=== PATIENT | male | born 1995 | race Caucasian/White ===

== ENCOUNTER 2022-02-03 12:07 | Emergency (ER) | payer OTHER ==
[2022-02-03 13:02] VITALS: BP 129/84; PULSE 85; RESP 18; TEMP 97.8
[2022-02-03] MEDS ORDERED: IBUPROFEN 800 MG TAB PO STA (13:20)
--- NOTE | 2022-02-03 13:30 | ED ---
General Adult HPI - General Chief complaint: Extremity Problem,Nontraumatic Stated complaint: Ankle injury Time Seen by Provider: 02/03/22 13:15 Source: patient, RN notes reviewed, old records reviewed Mode of arrival: ambulatory Limitations: no limitations - History of Present Illness Initial comments: 26-year-old male who presents to the emergency room with complaints of left ankle pain since rolling it on January 29. Patient's brother taped the ankle for support today. He denies any other injury. He states he does have a history of multiple broken bones in the past. He also has a history of bipolar and takes medications daily. -: days(s) (5) Location: left, lower extremity (ankle) Severity scale (1-10): 6 Quality: constant Consistency: constant Improves with: immobilization Worsens with: movement (ambulation) Associated Symptoms: denies other symptoms Treatments Prior to Arrival: other (taped for support) - Related Data Previous Rx's Medication Instructions Recorded Ibuprofen [Motrin] 800 mg PO Q6HR #30 tab 02/03/22 Allergies Allergy/AdvReac Type Severity Reaction Status Date / Time guanfacine [From Tenex] Allergy Anaphylaxis Verified 02/03/22 12:54 aspirin AdvReac Nausea & Verified 02/03/22 12:54 Vomiting & Diarrhea Review of Systems ROS Statement: Those systems with pertinent positive or pertinent negative responses have been documented in the HPI. ROS Other: All systems not noted in ROS Statement are negative. Past Medical History Additional Past Medical History / Comment(s): autism. hypermobility joint syndrome History of Any Multi-Drug Resistant Organisms: None Reported Past Surgical History: Adenoidectomy, Tonsillectomy Past Psychological History: ADD/ADHD, Bipolar Smoking Status: Never smoker Past Alcohol Use History: None Reported Past Drug Use History: None Reported General Exam Limitations: no limitations General appearance: alert, in no apparent distress Head exam: Present: atraumatic Respiratory exam: Present: normal lung sounds bilaterally. Absent: respiratory distress, accessory muscle use Cardiovascular Exam: Present: regular rate, normal rhythm GI/Abdominal exam: Present: soft Extremities exam: Present: normal capillary refill. Absent: pedal edema, calf tenderness Neurological exam: Present: alert, oriented X3 Psychiatric exam: Present: normal affect, normal mood Skin exam: Present: warm, dry, normal color. Absent: cyanosis, diaphoretic, petechiae, pallor Course Vital Signs 02/03/22 12:48 Temperature 97.8 F Pulse Rate 85 Respiratory 18 Rate Blood Pressure 129/84 O2 Sat by Pulse 98 Oximetry Medical Decision Making - Medical Decision Making X-ray shows a possible remote avulsion injury medial malleolus with osteoarthritis. Patient was given a prescription for Motrin and a ankle stirrup splint. Directed to rest, ice, elevate ankle. He was given a referral to orthopedics and directed to follow up with them this week. Disposition Clinical Impression: Avulsion fracture of ankle Disposition: HOME SELF-CARE Condition: Good Instructions (If sedation given, give patient instructions): Ankle Fracture (ED) Additional Instructions: Rest, ice, elevate and wear splint until seen by orthopedics this week. Take Tylenol and/or Motrin as needed for pain. Return to the emergency room with any new or concerning symptoms including increased pain or numbness. Prescriptions: Ibuprofen [Motrin] 800 mg PO Q6HR #30 tab Is patient prescribed a controlled substance at d/c from ED?: No Referrals: None,Stated [Primary Care Provider] - 1-2 days Aristides Cortez MD [Medical Doctor] - 1-2 days Time of Disposition: 14:21
--- NOTE | 2022-02-03 13:38 | XR ---
Left ankle HISTORY: Pain, trauma 3 views of left ankle There is overlying splint present. Soft tissue swelling is noted. Bone mineralization, joint spaces a nd alignment are maintained. There is an enthesophyte at the insertion of the Achilles tendon. Some m ild spurring at the tibiotalar joint. At the level of the medial malleolus small ossific densities galindo spected distally which appear to be well-corticated, not felt likely to be acute, may be related to o ld avulsion injury, correlate for point tenderness IMPRESSION: No dislocation is evident. Follow-up as indicated. Possible remote avulsion injury medial malleolus, secondary osteoarthritis.
== END 2022-02-03 15:00 | disposition home or self-care (01) ==
LOC: EC 12:07
DX: S82.892A Other fracture of left lower leg, initial encounter for closed fracture (principal); X50.1XXA Overexertion from prolonged static or awkward postures, initial encounter
CPT/HCPCS: 29515; 99283